=== PATIENT | male | born 1995 | race Caucasian/White ===

== ENCOUNTER 2021-07-14 10:12 | Emergency (ER) | payer OTHER ==
[~2021-07-14] VITALS: Ht 170.2 cm; Wt 90.9 kg
[2021-07-14] MEDS ORDERED: ONDANSETRON HCL 4 MG TABLET PO ONE (11:30)
[2021-07-14 13:24] VITALS: BP 128/80
[2021-07-15 08:06] LABS: HIV 1-2 SCREEN 4TH GEN W/RFLX Non Reactive (Non Reactive)
== END 2021-07-14 13:25 ==
LOC: EDBD 10:18 → EMS 10:18
DX: Z11.4 Encounter for screening for human immunodeficiency virus [HIV] (principal)
CPT/HCPCS: 36415; 87389; 99283; Q0162